=== PATIENT | male | born 1960 | race Caucasian/White ===

== ENCOUNTER 2016-10-23 01:29 | Emergency (ER) | payer MEDICAID ==
[~2016-10-23] VITALS: Ht 175.3 cm; Wt 102.0 kg
[~2016-10-23 01:29] MED LIST: AMOX-424 PO; DOXY100C42 PO
[2016-10-23] MEDS ORDERED: HALOPERIDOL LACTATE 5MG/ML VIAL IM STA (01:42)
[2016-10-23] MEDS ORDERED: LORAZEPAM 2MG/ML CPJ IM STA (01:42)
[2016-10-23] MEDS ORDERED: DIPHENHYDRAMINE 50MG/ML VIAL IM STA (01:42)
[2016-10-23] MEDS ORDERED: TETANUS, DIPHTHERIA, PERTUSSIS VAC/PF 0.5ML (>7YR OLD) IM ONE (01:45)
[2016-10-23 02:26] LABS: BASOPHILS % 0.5 % (0.0-2.0); EOSINOPHILS % 0.6 % (0.0-5.0); HEMATOCRIT. 41.1 % (42.0-52.0); HEMOGLOBIN. 13.7 g/dL (14.0-18.0); LYMPHOCYTES % 15.1 % (20.0-50.0); MEAN CORPUSCULAR HEMOGLOBIN 30.2 pg (28.0-32.0); MEAN CORPUSCULAR HGB CONC 33.3 g/dL (31.0-37.0); MEAN CORPUSCULAR VOLUME 90.8 fL (80.0-94.0); MONOCYTES % 4.7 % (2.0-8.0); NEUTROPHILS % 79.1 % (40.0-76.0); PLATELET 299 x1000/uL (130-400); RED BLOOD CELL COUNT 4.52 mill/uL (4.7-6.1); RED CELL DISTRIBUTION WIDTH 14.7 % (11.6-14.6)
[2016-10-23 02:28] LABS: CHLORIDE 102 mEq/L (98-107); INDEX HEMOLYSI 2 (1-3); INDEX ICTERIC 1 (1-4); INDEX LIPEMIC 1 (1-3)
[2016-10-23 02:36] LABS: ALANINE AMINOTRANSFERASE 36 IU/L (13-61); ALBUMIN 4.2 g/dL (3.4-5.0); ANION GAP 20; CARBON DIOXIDE 24 mEq/L (21-32); ETHANOL BLOOD 256 mg/dL; UREA NITROGEN BLOOD 15 mg/dL (7-21); eGFR > 60 mL/min (>60)
[2016-10-23] MEDS ORDERED: OLANZAPINE 10 MG/VIAL IM ONE (04:15)
[2016-10-23] MEDS ORDERED: LORAZEPAM 2MG/ML CPJ IM ONE (04:15)
[2016-10-23 12:10] VITALS: BP 128/76
== END 2016-10-23 12:20 | disposition home or self-care (01) ==
LOC: ER 01:34
DX: T51.91XA Toxic effect of unspecified alcohol, accidental (unintentional), initial encounter (principal); S09.90XA Unspecified injury of head, initial encounter; J45.909 Unspecified asthma, uncomplicated; Y09 Assault by unspecified means; Y99.9 Unspecified external cause status; Y92.89 Other specified places as the place of occurrence of the external cause; Z23 Encounter for immunization; R51 Headache
CPT/HCPCS: 36415; 70450; 70486; 80053; 85025; 90471; 90715; 96372; 99285; G0482; J1200; J1630; J2060; J3490; Z7610

== ENCOUNTER 2017-09-15 06:24 | Emergency (ER) | payer MEDICAID ==
[~2017-09-15] VITALS: Ht 170.2 cm; Wt 83.0 kg
[2017-09-15] MEDS ORDERED: ALBUTEROL (0.083%) 2.5MG/3ML NEB HHN STA (06:52)
[2017-09-15] MEDS ORDERED: IPRATROPIUM BROMIDE (0.02%) 0.5MG/2.5ML NEB HHN STA (06:52)
[2017-09-15] MEDS ORDERED: METHYLPREDNISOLONE SOD SUCC 125 MG/2 ML VIAL IV STA (06:52)
[2017-09-15] MEDS ORDERED: ENALAPRIL 2.5MG/2ML VIAL 2ML IV ONE (07:00)
[2017-09-15] MEDS ORDERED: IPRATROPIUM/ALBUTEROL 0.5-3(2.5)MG/3ML NEB ONE (07:08)
[2017-09-15] MEDS ORDERED: ALBUTEROL (0.5%) 2.5MG/0.5ML NEB HHN ONE (07:09)
[2017-09-15] MEDS ORDERED: LEVOFLOXACIN 750MG PREMIX 150 ML IV ONE (07:15)
[2017-09-15 07:49] LABS: BASOPHILS % 0.4 % (0.0-2.0); EOSINOPHILS % 5.9 % (0.0-5.0); HEMATOCRIT. 37.1 % (42.0-52.0); HEMOGLOBIN. 12.6 g/dL (14.0-18.0); MEAN CORPUSCULAR HEMOGLOBIN 30.2 pg (28.0-32.0); MEAN PLATELET VOLUME 8.1 fl (7.4-10.4); MONOCYTES % 9.8 % (2.0-8.0); NEUTROPHILS % 67.9 % (40.0-76.0); PLATELET 195 x1000/uL (130-400); RED BLOOD CELL COUNT 4.17 mill/uL (4.7-6.1); RED CELL DISTRIBUTION WIDTH 13.9 % (11.6-14.6)
[2017-09-15 07:50] LABS: CHLORIDE 104 mEq/L (98-107)
[2017-09-15 07:51] LABS: INR 1.1; PARTIAL THROMBOPLASTIN TIME 29.6 sec (23.4-31.0); PROTHROMBIN TIME 11.9 sec (9.4-11.6)
[2017-09-15 07:56] LABS: CREATINE KINASE 101 IU/L (39-308); CREATINE KINASE MB FRACTION 0.6 ng/mL (0.5-3.6)
[2017-09-15 08:14] LABS: CLARITY URINE CLEAR (CLEAR); COLOR URINE YELLOW (YELLOW); KETONES URINE NEGATIVE (NEGATIVE); LEUKOCYTE ESTERASE URINE NEGATIVE (NEGATIVE); NITRITE URINE NEGATIVE (NEGATIVE); OCCULT BLOOD URINE 2+ (NEGATIVE); PROTEIN URINE 1+ (NEGATIVE); UROBILINOGEN URINE 0.2 E.U./dL (0.2-1.0)
[2017-09-15 08:34] LABS: *AMPHETAMINES SCREEN URINE NEGATIVE (NEGATIVE); *BARBITURATES SCREEN URINE NEGATIVE (NEGATIVE); *BENZODIAZEPINES SCREEN URINE NEGATIVE (NEGATIVE); *COCAINE SCREEN URINE NEGATIVE (NEGATIVE); CANNABINOID URINE SCREEN PRESUMTIVE POSITIVE (NEGATIVE); METHADONE URINE SCREEN PRESUMTIVE POSITIVE (NEGATIVE); OPIATES URINE SCREEN NEGATIVE (NEGATIVE); PHENCYCLIDINE URINE SCREEN NEGATIVE (NEGATIVE)
[2017-09-15 11:00] VITALS: BP 142/87
[2017-09-15] MEDS ORDERED: AZITHROMYCIN 500 MG in DEXT 5% WATER 250 ML IV SCH (12:15)
[2017-09-15] MEDS ORDERED: CLONIDINE 0.1MG TABLET PO PRN (12:15)
[2017-09-15] MEDS ORDERED: IPRATROPIUM/ALBUTEROL 0.5-3(2.5)MG/3ML NEB INH SCH (12:15)
[2017-09-15] MEDS ORDERED: HYDROCODONE/ACETAMINOPHEN 5/325MG TABLET PO PRN (12:15)
[2017-09-15] MEDS ORDERED: ONDANSETRON HCL 4MG/2ML VIAL IV PRN (12:15)
[2017-09-15] MEDS ORDERED: CEFTRIAXONE 1 G PREMIX 50 ML IV SCH (12:15)
[2017-09-15] MEDS ORDERED: DIPHENHYDRAMINE 50MG/ML VIAL IV PRN (12:15)
[2017-09-15] MEDS ORDERED: IPRATROPIUM/ALBUTEROL 0.5-3(2.5)MG/3ML NEB INH PRN (12:15)
== END 2017-09-15 11:34 | disposition left against medical advice (07) ==
LOC: ER 07:55 → EDBEDREQ 07:57 → ER 11:34 → CANBEDREQ 12:53
DX: J18.0 Bronchopneumonia, unspecified organism (principal); I16.0 Hypertensive urgency; J45.901 Unspecified asthma with (acute) exacerbation; D64.9 Anemia, unspecified; F11.20 Opioid dependence, uncomplicated; F12.90 Cannabis use, unspecified, uncomplicated
CPT/HCPCS: 36415; 71045; 80053; 80305; 81003; 82550; 82553; 83605; 83690; 83880; 84484; 85025; 85610; 85730; 87040; 87086; 87804; 93005; 94640; 96365; 96375; 99291; J1956; J2930; J3490; J7611; J7620

== ENCOUNTER 2018-05-04 16:43 | Emergency (ER) | payer MEDICAID ==
[~2018-05-04] VITALS: Ht 170.2 cm; Wt 84.0 kg
[2018-05-05] MEDS ORDERED: KETOROLAC 30MG/ML VIAL IV STA (03:59)
[2018-05-05] MEDS ORDERED: KETOROLAC 30MG/ML VIAL IV SCH (05:00)
[2018-05-05 05:37] LABS: CHLORIDE 106 mEq/L (98-107)
[2018-05-05 05:41] LABS: BASOPHILS % 0.8 % (0.0-2.0); EOSINOPHILS % 1.8 % (0.0-5.0); HEMATOCRIT. 36.8 % (42.0-52.0); HEMOGLOBIN. 12.7 g/dL (14.0-18.0); LYMPHOCYTES % 23.8 % (20.0-50.0); MEAN CORPUSCULAR HEMOGLOBIN 31.1 pg (28.0-32.0); MEAN CORPUSCULAR VOLUME 90.2 fL (80.0-94.0); MEAN PLATELET VOLUME 8.4 fl (7.4-10.4); MONOCYTES % 6.2 % (2.0-8.0); NEUTROPHILS % 67.4 % (40.0-76.0); PLATELET 270 x1000/uL (130-400); RED BLOOD CELL COUNT 4.08 mill/uL (4.7-6.1); RED CELL DISTRIBUTION WIDTH 13.7 % (11.6-14.6)
[2018-05-05 06:15] VITALS: BP 127/85
== END 2018-05-05 06:16 | disposition home or self-care (01) ==
LOC: ER 16:43
DX: R07.89 Other chest pain (principal); G43.909 Migraine, unspecified, not intractable, without status migrainosus; J45.909 Unspecified asthma, uncomplicated; R03.0 Elevated blood-pressure reading, without diagnosis of hypertension; M54.30 Sciatica, unspecified side; Z90.49 Acquired absence of other specified parts of digestive tract
CPT/HCPCS: 36415; 71045; 80053; 85025; 93005; 96374; 99285; J1885

== ENCOUNTER 2018-06-28 07:59 | Inpatient (IN) | payer MEDICAID ==
[~2018-06-28] VITALS: Ht 170.2 cm; Wt 86.2 kg
[2018-06-28] MEDS ORDERED: KETOROLAC 30MG/ML VIAL IV STA (10:20)
[2018-06-28] MEDS ORDERED: SODIUM CHLORIDE 0.9% 1,000 ML IV ONE (10:20)
[2018-06-28 12:53] LABS: BASOPHILS % 0.2 % (0.0-2.0); EOSINOPHILS % 0.1 % (0.0-5.0); HEMATOCRIT. 41.6 % (42.0-52.0); HEMOGLOBIN. 14.4 g/dL (14.0-18.0); LYMPHOCYTES % 16.6 % (20.0-50.0); MEAN CORPUSCULAR HEMOGLOBIN 30.8 pg (28.0-32.0); MEAN CORPUSCULAR VOLUME 88.6 fL (80.0-94.0); MEAN PLATELET VOLUME 8.5 fl (7.4-10.4); MONOCYTES % 7.3 % (2.0-8.0); NEUTROPHILS % 75.8 % (40.0-76.0); PLATELET 269 x1000/uL (130-400); RED BLOOD CELL COUNT 4.69 mill/uL (4.7-6.1); RED CELL DISTRIBUTION WIDTH 13.8 % (11.6-14.6)
[2018-06-28 12:58] LABS: CHLORIDE 101 mEq/L (98-107)
[2018-06-28 13:01] LABS: D-DIMER 3.73 mg/L FEU (<0.50); INR 1.2; PROTHROMBIN TIME 11.7 sec (9.1-11.1)
[2018-06-28 13:03] LABS: ETHANOL BLOOD < 10 mg/dL
[2018-06-28 13:05] LABS: CLARITY URINE CLOUDY (CLEAR); COLOR URINE YELLOW (YELLOW); KETONES URINE 1+ (NEGATIVE); LEUKOCYTE ESTERASE URINE NEGATIVE (NEGATIVE); NITRITE URINE NEGATIVE (NEGATIVE); OCCULT BLOOD URINE 3+ (NEGATIVE); PH URINE 5.5 (4.5-8.0); PROTEIN URINE 4+ (NEGATIVE); SPECIFIC GRAVITY URINE 1.031 (1.005-1.030); UROBILINOGEN URINE 0.2 E.U./dL (0.2-1.0)
[2018-06-28] MEDS ORDERED: ASPIRIN 325MG EC TABLET PO ONE (13:15)
[2018-06-28] MEDS ORDERED: LIDOCAINE HCL 1% 20ML VIAL (Pyxis) INJ ONE (13:30)
[2018-06-28] MEDS ORDERED: SODIUM BICARBONATE 4% (2.4MEQ) 5ML VIAL IV ONE (13:30)
[2018-06-28 13:55] LABS: PHENCYCLIDINE URINE SCREEN NEGATIVE (NEGATIVE)
[2018-06-28 13:56] LABS: *BARBITURATES SCREEN URINE NEGATIVE (NEGATIVE)
[2018-06-28] MEDS ORDERED: ENOXAPARIN 100MG/ML SYR SUBCUT ONE (14:00)
[2018-06-28] MEDS ORDERED: LEVOFLOXACIN 750MG PREMIX 150 ML IV ONE (14:00)
[2018-06-28] MEDS ORDERED: SODIUM CHLORIDE 0.9% 1000ML BAG (SEPSIS BOLUS) IV ONE (14:00)
[2018-06-28 14:02] LABS: METHADONE URINE SCREEN PRESUMTIVE POSITIVE (NEGATIVE)
[2018-06-28 14:05] LABS: *COCAINE SCREEN URINE NEGATIVE (NEGATIVE); OPIATES URINE SCREEN PRESUMTIVE POSITIVE (NEGATIVE)
[2018-06-28 14:06] LABS: *AMPHETAMINES SCREEN URINE NEGATIVE (NEGATIVE); *BENZODIAZEPINES SCREEN URINE NEGATIVE (NEGATIVE)
[2018-06-28 14:07] LABS: CANNABINOID URINE SCREEN PRESUMTIVE POSITIVE (NEGATIVE)
[2018-06-28] MEDS ORDERED: ASPIRIN 81MG TABLET PO ONE (14:15)
[2018-06-28] MEDS ORDERED: IOHEXOL-350 100 ML BOTTLE ONE (14:32)
[2018-06-28] MEDS ORDERED: POTASSIUM CHLORIDE 20MEQ TABLET SR PO NR (14:40)
[2018-06-28 15:28] LABS: CREATINE KINASE MB FRACTION 4.5 ng/mL (0.5-3.6)
[2018-06-28] MEDS ORDERED: MORPHINE SULFATE 4 MG/ML CPJ (NOT FOR IM USE) IV STA (15:28)
[2018-06-28] MEDS ORDERED: ONDANSETRON HCL 4MG/2ML INJ IV STA (15:28)
[2018-06-28] MEDS ORDERED: METOPROLOL TARTRATE 50MG TABLET PO NR (18:40)
[2018-06-28] MEDS ORDERED: ENOXAPARIN 100MG/ML SYR SUBCUT NR (19:00)
[2018-06-28] MEDS ORDERED: ONDANSETRON HCL 4MG/2ML INJ IV ONE (20:15)
[2018-06-28 21:55] VITALS: BP 178/101
[2018-06-28] MEDS ORDERED: METH10OR11 PO (22:22)
[2018-06-28] MEDS ORDERED: GABA800T97 PO (22:24)
[2018-06-28] MEDS ORDERED: IPRATROPIUM/ALBUTEROL 0.5-3(2.5)MG/3ML NEB HHN PRN (23:15)
[2018-06-28] MEDS: CLONIDINE 0.1MG TABLET PO PRN (23:52)
[2018-06-29 00:36] VITALS: BP 161/85
[2018-06-29 04:00] VITALS: BP 159/90
[2018-06-29 08:00] VITALS: BP 151/67
[2018-06-29] MEDS: METOPROLOL TARTRATE 50MG TABLET PO SCH ×2 (09:06→22:09)
[2018-06-29] MEDS: GABAPENTIN 400MG CAPSULE PO SCH (09:07)
[2018-06-29] MEDS: ACETAMINOPHEN 325MG TABLET PO PRN ×2 (10:58→22:21)
[2018-06-29] MEDS: ONDANSETRON HCL 4MG/2ML INJ IV PRN ×2 (11:06→22:20)
[2018-06-29 12:00] VITALS: BP 139/76
[2018-06-29] MEDS: METHADONE HCL 10MG TABLET PO SCH (13:46)
[2018-06-29 16:00] VITALS: BP 171/91
[2018-06-29] MEDS: CLONIDINE 0.1MG TABLET PO PRN (16:50)
[2018-06-29] MEDS ORDERED: OMEPRAZOLE 20MG CAPSULE EXTENDED RELEASE PO NR (17:00)
[2018-06-29] MEDS ORDERED: LORAZEPAM 2MG/ML CPJ IV PRN (17:00)
[2018-06-29 17:15] LABS: BASOPHILS % 0.7 % (0.0-2.0); EOSINOPHILS % 1.6 % (0.0-5.0); HEMATOCRIT. 38.9 % (42.0-52.0); HEMOGLOBIN. 13.2 g/dL (14.0-18.0); LYMPHOCYTES % 29.1 % (20.0-50.0); MEAN CORPUSCULAR HEMOGLOBIN 30.8 pg (28.0-32.0); MEAN PLATELET VOLUME 8.4 fl (7.4-10.4); NEUTROPHILS % 59.6 % (40.0-76.0); PLATELET 210 x1000/uL (130-400); RED BLOOD CELL COUNT 4.28 mill/uL (4.7-6.1); RED CELL DISTRIBUTION WIDTH 13.8 % (11.6-14.6)
[2018-06-29 17:15] LABS: CHLORIDE 103 mEq/L (98-107)
[2018-06-29 20:43] VITALS: BP 119/76
[2018-06-29] MEDS: IPRATROPIUM/ALBUTEROL 0.5-3(2.5)MG/3ML NEB HHN SCH (21:28)
[2018-06-29] MEDS: BUDESONIDE 0.5MG/2ML NEB HHN SCH (21:28)
[2018-06-29] MEDS: GUAIFENESIN 600MG ER TABLET PO SCH (21:45)
[2018-06-29] MEDS: AMLODIPINE 5MG TABLET PO SCH (22:09)
[2018-06-29] MEDS: PIPERACILLIN/TAZ 3.375G PREMIX 50 ML IV SCH (22:10)
[2018-06-30] VITALS: BP 120/68
[2018-06-30] MEDS: PIPERACILLIN/TAZ 3.375G PREMIX 50 ML IV SCH ×2 (02:09→08:00)
[2018-06-30] MEDS: IPRATROPIUM/ALBUTEROL 0.5-3(2.5)MG/3ML NEB HHN SCH ×3 (02:28→14:06)
[2018-06-30 04:00] VITALS: BP 122/75
[2018-06-30] MEDS ORDERED: OMEPRAZOLE 20MG CAPSULE EXTENDED RELEASE PO SCH (07:20)
[2018-06-30 07:46] LABS: BASOPHILS % 0.5 % (0.0-2.0); EOSINOPHILS % 2.5 % (0.0-5.0); HEMATOCRIT. 37.9 % (42.0-52.0); HEMOGLOBIN. 12.7 g/dL (14.0-18.0); LYMPHOCYTES % 34.2 % (20.0-50.0); MEAN CORPUSCULAR HEMOGLOBIN 30.8 pg (28.0-32.0); MEAN CORPUSCULAR VOLUME 91.8 fL (80.0-94.0); MEAN PLATELET VOLUME 8.7 fl (7.4-10.4); MONOCYTES % 6.7 % (2.0-8.0); NEUTROPHILS % 56.1 % (40.0-76.0); PLATELET 187 x1000/uL (130-400); RED BLOOD CELL COUNT 4.13 mill/uL (4.7-6.1); RED CELL DISTRIBUTION WIDTH 13.6 % (11.6-14.6)
[2018-06-30 08:00] VITALS: BP 147/82
[2018-06-30] MEDS: BUDESONIDE 0.5MG/2ML NEB HHN SCH (09:20)
[2018-06-30] MEDS: GUAIFENESIN 600MG ER TABLET PO SCH (09:40)
[2018-06-30] MEDS: GABAPENTIN 400MG CAPSULE PO SCH (09:41)
[2018-06-30] MEDS: AMLODIPINE 5MG TABLET PO SCH (09:41)
[2018-06-30] MEDS: ONDANSETRON HCL 4MG/2ML INJ IV PRN (09:42)
[2018-06-30] MEDS: METOPROLOL TARTRATE 50MG TABLET PO SCH (09:42)
[2018-06-30] MEDS: METHADONE HCL 10MG TABLET PO SCH (09:53)
[2018-06-30] MEDS ORDERED: SODIUM CHLORIDE 0.9% 1,000 ML IV SCH (10:00)
[2018-06-30 12:00] VITALS: BP 146/83
[2018-06-30] MEDS ORDERED: DOCUSATE SODIUM 250MG CAPSULE PO SCH (12:00)
[2018-06-30] MEDS ORDERED: PIPERACILLIN/TAZ 3.375G PREMIX 50 ML IV SCH (14:00)
[2018-06-30] MEDS ORDERED: AMOX-424 MT (16:03)
[2018-06-30 16:32] VITALS: BP 107/57
[2018-07-01] MEDS ORDERED: OMEPRAZOLE 20MG CAPSULE EXTENDED RELEASE PO SCH (07:20)
== END 2018-06-30 18:27 | disposition home or self-care (01) | DRG 720 ==
LOC: ER 07:59 → 6WST 14:42 → EDBEDREQTM 14:47 → EDBEDREQ 14:47 → ENRESERV 20:35
PROVIDERS: ADMIT Internal Medicine; ATTEND Internal Medicine
PROC: 02HV33Z Insertion of Infusion Device into Superior Vena Cava, Percutaneous Approach (ICD-10-PCS; principal; 2018-06-28)
PROC: B5181ZA Fluoroscopy of Superior Vena Cava using Low Osmolar Contrast, Guidance (ICD-10-PCS; 2018-06-28)
PROC: B548ZZA Ultrasonography of Superior Vena Cava, Guidance (ICD-10-PCS; 2018-06-28)
DX: A41.9 Sepsis, unspecified organism (principal); J96.00 Acute respiratory failure, unspecified whether with hypoxia or hypercapnia; E87.2 Acidosis; M62.82 Rhabdomyolysis; J18.9 Pneumonia, unspecified organism; I10 Essential (primary) hypertension; K21.9 Gastro-esophageal reflux disease without esophagitis; K59.00 Constipation, unspecified; R07.89 Other chest pain; J44.0 Chronic obstructive pulmonary disease with (acute) lower respiratory infection; B19.20 Unspecified viral hepatitis C without hepatic coma; F17.210 Nicotine dependence, cigarettes, uncomplicated; G43.909 Migraine, unspecified, not intractable, without status migrainosus; Z87.01 Personal history of pneumonia (recurrent); Z90.49 Acquired absence of other specified parts of digestive tract; Z79.899 Other long term (current) drug therapy
CPT/HCPCS: 36415; 36569; 71045; 71275; 74176; 76937; 77001; 80048; 80061; 80076; 80305; 82150; 82550; 82553; 83605; 83880; 84484; 85379; 87070; 87430; 87804; 93005; 93306; 93970; 94640; 96365; 96375; 99291; C1725; G0482; J1650; J1885; J1956; J2270; J2405; J2543; J3490; J7030; J7040; J7050; J7620; J7626; Q9967

== ENCOUNTER 2019-10-05 14:42 | Inpatient (IN) | payer MEDICAID ==
[~2019-10-05] VITALS: Ht 170.2 cm; Wt 84.4 kg
[~2019-10-05 14:42] MED LIST changes: +AMOX-424 MT; -AMOX-424 PO; -DOXY100C42 PO; +GABA800T97 PO; +METH10OR11 PO
[2019-10-05] MEDS ORDERED: SODIUM CHLORIDE 0.9% 1,000 ML IV ONE (16:34)
[2019-10-05] MEDS ORDERED: ONDANSETRON HCL 4MG/2ML INJ IV STA (16:34)
[2019-10-05 16:58] LABS: BASOPHILS % 0.3 % (0.0-2.0); CHLORIDE 103 mEq/L (98-107); EOSINOPHILS % 0.2 % (0.0-5.0); HEMATOCRIT. 37.2 % (42.0-52.0); HEMOGLOBIN. 12.6 g/dL (14.0-18.0); MEAN CORPUSCULAR HEMOGLOBIN 30.4 pg (28.0-32.0); MEAN CORPUSCULAR VOLUME 89.6 fL (80.0-94.0); MEAN PLATELET VOLUME 8.2 fl (7.4-10.4); MONOCYTES % 3.7 % (2.0-8.0); NEUTROPHILS % 86.8 % (40.0-76.0); PLATELET 286 x1000/uL (130-400); RED BLOOD CELL COUNT 4.16 mill/uL (4.7-6.1); RED CELL DISTRIBUTION WIDTH 14.4 % (11.6-14.6)
[2019-10-05 16:59] LABS: INR 1.1; PROTHROMBIN TIME 11.4 sec (9.6-11.0)
[2019-10-05] MEDS ORDERED: ONDANSETRON HCL 4MG/2ML INJ IV ONE (18:15)
[2019-10-05] MEDS ORDERED: FAMOTIDINE 20MG/2ML VIAL IV ONE (18:15)
[2019-10-05 19:33] LABS: CLARITY URINE CLEAR (CLEAR); COLOR URINE YELLOW (YELLOW); KETONES URINE TRACE (NEGATIVE); LEUKOCYTE ESTERASE URINE NEGATIVE (NEGATIVE); NITRITE URINE NEGATIVE (NEGATIVE); OCCULT BLOOD URINE TRACE (NEGATIVE); PH URINE 8.5 (4.5-8.0); PROTEIN URINE 3+ (NEGATIVE); SPECIFIC GRAVITY URINE 1.025 (1.005-1.030)
[2019-10-05] MEDS ORDERED: ACETAMINOPHEN 325MG TABLET PO ONE ×2 (19:45→20:15)
[2019-10-05] MEDS ORDERED: CEFTRIAXONE 1 G PREMIX 50 ML IV SCH (23:30)
[2019-10-05] MEDS ORDERED: GUAIFENESIN 200MG/10ML SUGAR FREE UDC PO PRN (23:30)
[2019-10-05] MEDS ORDERED: MAGNESIUM/ALUMINUM HYDROXIDE/SIMETHICONE 30ML UDC PO PRN (23:30)
[2019-10-05] MEDS ORDERED: DOCUSATE SODIUM 100MG CAPSULE PO PRN (23:30)
[2019-10-05] MEDS ORDERED: CLONIDINE 0.1MG TABLET PO PRN (23:30)
[2019-10-05] MEDS ORDERED: IPRATROPIUM/ALBUTEROL 0.5-3(2.5)MG/3ML NEB NEB PRN (23:30)
[2019-10-06] MEDS: ONDANSETRON HCL 4MG/2ML INJ IV PRN ×3 (00:41→13:13)
[2019-10-06] MEDS: HYDROCODONE/ACETAMINOPHEN 5/325MG TABLET PO PRN ×2 (00:44→05:05)
[2019-10-06] MEDS ORDERED: CEFTRIAXONE 1 G PREMIX 50 ML IV SCH (01:00)
[2019-10-06 01:25] VITALS: BP 136/79
[2019-10-06] MEDS ORDERED: AZITHROMYCIN 500 MG in DEXT 5% WATER 250 ML IV NR (02:00)
[2019-10-06 06:23] LABS: *AMPHETAMINES SCREEN URINE NEGATIVE (NEGATIVE); CANNABINOID URINE SCREEN PRESUMTIVE POSITIVE (NEGATIVE); OPIATES URINE SCREEN PRESUMTIVE POSITIVE (NEGATIVE); PHENCYCLIDINE URINE SCREEN NEGATIVE (NEGATIVE)
[2019-10-06 06:25] LABS: *BARBITURATES SCREEN URINE NEGATIVE (NEGATIVE); *BENZODIAZEPINES SCREEN URINE NEGATIVE (NEGATIVE); *COCAINE SCREEN URINE NEGATIVE (NEGATIVE); METHADONE URINE SCREEN PRESUMTIVE POSITIVE (NEGATIVE)
[2019-10-06 08:00] VITALS: BP 126/70
[2019-10-06] MEDS ORDERED: ENOXAPARIN 40MG/0.4ML SYR SUBCUT SCH (09:00)
[2019-10-06 12:26] VITALS: BP 156/82
[2019-10-06] MEDS ORDERED: METHADONE HCL 10MG TABLET PO SCH (13:00)
[2019-10-06] MEDS ORDERED: NON FORMULARY PATIENT HOME MED XX SCH (14:00)
[2019-10-06] MEDS ORDERED: ACETAMINOPHEN 325MG TABLET PO PRN (14:00)
[2019-10-06] MEDS ORDERED: FOLIC ACID 1MG TABLET PO SCH (14:30)
[2019-10-06] MEDS ORDERED: ASCORBIC ACID 500 MG TABLET PO SCH (14:30)
[2019-10-06] MEDS ORDERED: THIAMINE HCL 100MG TABLET PO SCH (14:30)
[2019-10-06] MEDS: PREDNISONE 20MG TABLET PO SCH ×2 (16:18→17:00)
[2019-10-06 16:21] VITALS: BP 122/74
[2019-10-06 16:22] LABS: BASOPHILS % 0.7 % (0.0-2.0); CHLORIDE 102 mEq/L (98-107); EOSINOPHILS % 1.1 % (0.0-5.0); HEMATOCRIT. 36.1 % (42.0-52.0); HEMOGLOBIN. 12.4 g/dL (14.0-18.0); LYMPHOCYTES % 25.6 % (20.0-50.0); MEAN CORPUSCULAR HEMOGLOBIN 30.8 pg (28.0-32.0); MEAN PLATELET VOLUME 7.8 fl (7.4-10.4); MONOCYTES % 7.7 % (2.0-8.0); NEUTROPHILS % 64.9 % (40.0-76.0); PLATELET 278 x1000/uL (130-400); RED BLOOD CELL COUNT 4.01 mill/uL (4.7-6.1); RED CELL DISTRIBUTION WIDTH 14.7 % (11.6-14.6)
[2019-10-06 16:30] LABS: LDL CHOLESTEROL 110 mg/dL (5-100)
[2019-10-06 16:31] LABS: CREATINE KINASE 202 IU/L (39-308)
[2019-10-06 16:32] LABS: HDL CHOLESTEROL 34 mg/dL (40-59)
[2019-10-06 16:34] LABS: CREATINE KINASE MB FRACTION 1.6 ng/mL (0.5-3.6)
[2019-10-06 16:50] VITALS: BP 122/74
[2019-10-06] MEDS ORDERED: FLUTICASONE FUROATE 100 1 INH/CAP ORI SCH (17:00)
[2019-10-06] MEDS ORDERED: IPRATROPIUM/ALBUTEROL 0.5-3(2.5)MG/3ML NEB HHN SCH (18:00)
[2019-10-06] MEDS ORDERED: ALBUTEROL 6.7GM HFA INHALER ORI SCH (18:00)
[2019-10-06] MEDS ORDERED: MONTELUKAST SODIUM 10MG TABLET PO SCH (21:00)
[2019-10-06] MEDS ORDERED: FAMOTIDINE 20MG TABLET PO SCH (21:00)
[2019-10-07] MEDS ORDERED: AZITHROMYCIN 250 MG in DEXT 5% WATER 250 ML IV SCH (02:00)
[2019-10-12 08:07] LABS: CANNABINOID CONFIRMATION URINE Positive (.); OPIATES CONFIRMATION URINE Positive (.)
== END 2019-10-06 19:00 | disposition home or self-care (01) | DRG 720 ==
LOC: ER 14:42 → 7EST 19:44 → ENRESERV 23:04
PROVIDERS: ADMIT Internal Medicine; ATTEND Internal Medicine
DX: A41.89 Other specified sepsis (principal); J96.90 Respiratory failure, unspecified, unspecified whether with hypoxia or hypercapnia; E11.65 Type 2 diabetes mellitus with hyperglycemia; J45.901 Unspecified asthma with (acute) exacerbation; Z20.828 Contact with and (suspected) exposure to other viral communicable diseases; B34.9 Viral infection, unspecified; B19.20 Unspecified viral hepatitis C without hepatic coma; I10 Essential (primary) hypertension; F12.90 Cannabis use, unspecified, uncomplicated; D72.810 Lymphocytopenia; F17.210 Nicotine dependence, cigarettes, uncomplicated; M54.30 Sciatica, unspecified side; Z90.49 Acquired absence of other specified parts of digestive tract; Z79.899 Other long term (current) drug therapy; Z87.01 Personal history of pneumonia (recurrent)
CPT/HCPCS: 36415; 71045; 74018; 80048; 80053; 80061; 80305; 80349; 80358; 80361; 81003; 82550; 82553; 83036; 83605; 84443; 84484; 85025; 87635; 94640; 99291; J0456; J0696; J1650; J2405; J3490; J7030; J7060; J7512